=== PATIENT | male | born 1970 | race Caucasian/White ===

== ENCOUNTER 2020-10-02 08:05 | Outpatient (REF) | payer OTHER, BC, SELFPAY ==
[2020-10-02 11:32] LABS: Glucose Urine UA NEG (NEG); Leukocyte Esterase Urine 1+ (NEG); Nitrite Urine NEG (NEG); Urine Blood 2+ (NEG); Urine Ketones NEG (NEG); Urine Protein NEG (NEG-TRACE)
[2020-10-02 11:36] LABS: Appearance Urine HAZY; Color Urine STRAW
[2020-10-02 11:41] LABS: Hematocrit 41.1 % (42-52); Hemoglobin 13.3 g/dl (14.0-18.0); Mean Corpuscular HGB Conc 32.4 g/dl (31.0-36.0); Mean Corpuscular Hemoglobin 28.8 pg (27.0-33.0); Mean Platelet Volume 10.5 fL (9.4-12.4); Platelet Count 327 X10*3/uL (160-400); Red Blood Count 4.62 X10*6/uL (4.60-5.80); Red Cell Distribution Width 11.9 % (11.0-16.0); White Blood Count 4.7 X10*3/uL (4.8-10.8)
[2020-10-02 11:50] LABS: Alanine Aminotransferase 13 U/L (0-40); Albumin Level 4.2 g/dL (3.5-5.0); Alkaline Phosphatase 46 U/L (39-117); Anion Gap 10 (12-20); Aspartate Amino Transferase 20 U/L (5-37); Bilirubin Total 0.5 mg/dL (0.0-1.0); Blood Urea Nitrogen 13 mg/dL (9-16); Calcium 9.3 mg/dL (8.4-10.2); Carbon Dioxide 28 mmol/L (22-29); Chloride 105 mmol/L (96-108); Cholesterol 153 mg/dL; Estimated Glomerular Filt Rate > 60; Glucose Fasting 83 mg/dL (60-99); HDL Cholesterol 62 mg/dL; LDL Cholesterol Calculated 83 mg/dl; Potassium 4.8 mmol/L (3.3-5.1); Sodium 138 mmol/L (135-145); Total Protein 7.3 g/dL (6.5-8.0); Triglycerides 43 mg/dL
[2020-10-02 11:54] LABS: Squamous Epithelial Cell Urine TRACE /LPF
[2020-10-02 12:12] LABS: TSH reflex Free T4 3.49 uIU/mL (0.32-4.0); Vitamin D 25-OH Total 35.3 ng/mL (>30)
== END 2020-10-02 08:06 | disposition home or self-care (01) ==
LOC: HO.HMGCLDS 08:05
PROVIDERS: PCP Internal Medicine; Visit Provider Internal Medicine
DX: Z00.00 Encounter for general adult medical examination without abnormal findings (principal)
CPT/HCPCS: 36415; 80053; 80061; 81001; 82306; 84443; 85027

== ENCOUNTER 2022-08-21 12:41 | Outpatient (REF) | payer BC, SELFPAY ==
[2022-08-21 13:30] LABS: MANUAL DIFF FLAG NO
[2022-08-21 14:08] LABS: Basophils Absolute Auto 0.1 X10*3/uL (0.0-0.2); Basophils Percent Auto 0.8 % (0-2); Eosinophils Absolute Auto 0.1 X10*3/uL (0.0-0.4); Eosinophils Percent Auto 1.8 % (0-4); Hematocrit 40.3 % (42.0-52.0); Hemoglobin 13.2 g/dl (14.0-18.0); Imm Gran Abs Auto 0.03 X10*3/uL (0.00-0.03); Imm Gran Pct Auto 0.4 % (0.0-0.4); Lymphocytes Absolute Auto 1.4 X10*3/uL (1.2-4.9); Lymphocytes Percent Auto 18.9 % (20-40); Mean Corpuscular HGB Conc 32.8 g/dl (31.0-36.0); Mean Corpuscular Hemoglobin 29.9 pg (27.0-33.0); Mean Corpuscular Volume 91.4 fL (80.0-98.0); Mean Platelet Volume 9.9 fL (9.4-12.4); Monocytes Absolute Auto 0.4 X10*3/uL (0.1-1.2); Monocytes Percent Auto 5.8 % (2-11); Neutrophils Absolute Auto 5.2 x10*3/uL (2.0-8.3); Neutrophils Percent Auto 72.3 % (45-73); Platelet Count 359 X10*3/uL (160-400); Red Blood Count 4.41 X10*6/uL (4.60-5.80); Red Cell Distribution Width 11.9 % (11.0-16.0); White Blood Count 7.2 X10*3/uL (4.8-10.8)
[2022-08-21 15:39] LABS: Alanine Aminotransferase 12 U/L (0-40); Albumin Level 4.1 g/dL (3.5-5.0); Alkaline Phosphatase 45 U/L (39-117); Anion Gap 12 (12-20); Aspartate Amino Transferase 20 U/L (5-37); Bilirubin Total 0.3 mg/dL (0.0-1.0); Blood Urea Nitrogen 8 mg/dL (9-16); Calcium 9.4 mg/dL (8.4-10.2); Carbon Dioxide 27 mmol/L (22-29); Chloride 105 mmol/L (96-108); Estimated Glomerular Filt Rate > 60; Glucose Random 75 mg/dL (60-115); Potassium 4.5 mmol/L (3.3-5.1); Sodium 139 mmol/L (135-145); Total Protein 7.1 g/dL (6.5-8.0)
== END 2022-08-21 12:42 | disposition home or self-care (01) ==
LOC: HO.LAB 12:41
PROVIDERS: PCP Internal Medicine; Visit Provider Nurse Practitioner
DX: Z01.818 Encounter for other preprocedural examination (principal)
CPT/HCPCS: 36415; 80053; 85025

== ENCOUNTER 2023-03-03 11:21 | Day surgery (SDC) | payer BC, SELFPAY ==
[2023-02-27 11:57] VITALS: BMI 21.3
--- NOTE | 2023-02-28 10:17 | HO.ANESPROP2 ---
Documented by User: Dena Kate NP 02/28/23 10:18 HPI - Anesthesia Eval Consult details Narrative: 52yo M for Colonoscopy PMFSH Active Problems Active Problems: All Active Problems (Updated 08/21/22 @ 12:44 by WILLIAN Sharma) Pre-op examination (Acute) Anemia (Acute) Melasma (Acute) FHx: colonic polyps (Acute) Normal Pap smear (Acute) Annual physical exam (Acute) Past Medical History Medical History Anemia Annual physical exam FHx: colonic polyps Melasma Normal Pap smear Family History Family History Father HTN (hypertension) Intestinal polyps Paternal Grandfather Colon cancer Maternal Grandfather Prostate cancer Brother HTN (hypertension) Mother Intestinal polyps Surgical History Surgical History No pertinent past surgical history Social History Social History Alcohol intake: current Alcohol intake frequency: holidays/special occasions only Patient Tobacco Use Status: Never used Tobacco Use of substances other than those prescribed or required for medical reasons: No Are you DNR?: No Advance Directives: No Advance Directives Information Provided: Yes Meds Allergies Allergy/AdvReac Type Severity Reaction Status Date / Time No Known Allergies Allergy Verified 07/28/20 08:16 Exam Height,Weight and Vital Signs: Height 5 ft Weight 49.442 kg Pertinent Lab Results Pertinent Lab Results: Laboratory Tests 08/21/22 13:29 WBC 7.2 Hgb 13.2 L Hct 40.3 L Plt Count 359 Sodium 139 Potassium 4.5 Chloride 105 Carbon Dioxide 27 BUN 8 L Creatinine 0.77 Assessment and Plan Assessment Anesthesia Assessment: Chart Reviewed Documented by User: Sara Funk MD 03/03/23 12:18 [facility] Past Medical History Medical History Anemia Annual physical exam FHx: colonic polyps Melasma Normal Pap smear Family History Family History Father HTN (hypertension) Intestinal polyps Paternal Grandfather Colon cancer Maternal Grandfather Prostate cancer Brother HTN (hypertension) Mother Intestinal polyps Family history of problems with anesthesia: No Surgical History Surgical History No pertinent past surgical history History of Problems with Anesthesia: No Social History Social History Alcohol intake: current Alcohol intake frequency: holidays/special occasions only Patient Tobacco Use Status: Never used Tobacco Use of substances other than those prescribed or required for medical reasons: No Are you DNR?: No Advance Directives: No Advance Directives Information Provided: Yes Meds Allergies Allergy/AdvReac Type Severity Reaction Status Date / Time No Known Allergies Allergy Verified 07/28/20 08:16 Exam Airway Mallampati Class: II (caps) TM Dist: >3cm Neck ROM: Full Heart: rrr Lungs: cta Assessment and Plan Assessment Anesthesia Assessment: Anesthesia Plan Discussed Final Anesthetic Review Family History of Problems with Anesthesia: No History of Problems with Anesthesia: No NPO: Yes ASA Class: II Final Preanesthetic Review: No Changes in Pt Med Stat, Meds/Allgs Chart Reviewed and Consent Obtained/Reviewed Patient Risk: Intermediate Procedure Risk: Intermediate Anesthetic Plan Anesthetic Plan: MAC: Disposition: Standard PACU
--- NOTE | 2023-03-03 11:51 | MHC.SHP ---
Pre-Procedural Eval Section A Date of Service: 03/03/23 The patient is an INPATIENT: No The History & Physical has been completed within 30 days and I have reviewed it.: No Section B Chief Complaint: Colon cancer screening, FH of polyps and cancer Relevant Family History (Specify if Yes): Yes Relevant Social History: None Present Medications: see Short Stay Collaborative assessment Medical History: Significant History (Anemia Annual physical exam FHx: colonic polyps Melasma) History of Previous Operations: No relevant previous surgery Allergies: Allergies Allergy/AdvReac Type Severity Reaction Status Date / Time No Known Allergies Allergy Verified 07/28/20 08:16 Review of Systems Sugical H&P ROS: Negative: Constitution, Cardiovascular, Respiratory and Gastrointestinal Exam Surgical H&P Exam: Normal: Heart, Normal: Lungs, Normal: Extremities and Normal: Abdomen Plan Diagnosis/Plan: Unchanged I have reviewed the history and physical and performed a pertinent physical examination on my patient. No changes have occurred unless specified. Time Spent With Patient Time: Total time managing care of this patient today ____ minutes.
[2023-03-03 11:53] VITALS: BMI 21.1
[2023-03-03 12:00] VITALS: BP 112/73; PULSE 77; RESP 16; TEMP 36.3; O2SAT 100
[2023-03-03] MEDS: Lactated Ringers 1,000 ML 100 ML IVCONT (12:01)
--- NOTE | 2023-03-03 12:57 | W.PM.OPN ---
Operative Note Operative Note Date of Service: 03/03/23 Narrative: COLONOSCOPY TILL CECUM WITH SNARE POLYPECTOMY, SUBMUCOSAL INJECTION AND HEMOCLIP PLACEMENT Pre-op diagnosis: Colon cancer screen, family history of colon cancer and polyps Post-op diagnosis:? Colon polyps, diverticulosis, hemorrhoids Endoscopist:? Bud Cotter MD Anesthesia:?MAC Consent: Indications for the procedure and potential complications of bleeding, perforation, reaction to medications and missed diagnosis were discussed with the patient and informed consent was obtained. Instrument: Olympus PCF H 190 L variable stiffness pediatric colonoscope Monitoring: Vital signs and clinical assessment, intermittent blood pressure monitoring, continuous EKG monitoring, Pulse oximetry and Carbon Dioxide monitoring were done throughout the procedure. Please see anesthesia flowsheet. Colon withdrawl time was 30 minutes. Procedure: The patient was placed in the left lateral decubitis position and pre-procedure medications were administered. After a digital rectal examination of the ano-rectum, the video colonoscope was inserted into the rectum and advanced through the colon to the cecum. The colonoscope was slowly withdrawn in a retrograde panoramic fashion and the colon mucosa was carefully examined including a retroflexed view of the rectum. Findings and interventions are described below. Procedure Difficulty: Colon was long and tortuous and there was recurrent loop formation Findings: Terminal Ileum: Not evaluated Cecum: Normal Ascending Colon: A 3 x 2 cms elongated polyp in the mid AC at 55 to 60 cms. Polyp was raised with 5 cc of Eleview and removed with a hot stiff snare. Polypectomy site was closed with 2 hemoclips and marked with Dee ink. Polyp was retrieved with a Foley Net. Transverse Colon: 10 mm sessile polyp removed with hot snare Descending Colon: Moderate diverticulosis Sigmoid Colon: Severe diverticulosis Rectum: Normal Ano-rectum: Small internal hemorrhoids and hypertrophied anal papillae Colon preparation: Good in the right colon after copious irrigation and fair in the left colon due to undigested vegetable matter which could not be suctioned Impression and Post Procedure Diagnosis: Colonoscopy Findings: One large and one medium sized polyps removed Moderate to severe diverticulosis seen in the left colon Small hemorrhoids on retroflexed exam. Plan: Await pathology results Patient has an appointment on 03/20/23 in the GI Clinic with Monique Morales NP. Repeat Colonoscopy interval based on path results - in 6 months to check polypectomy site in the AC (needs to take Dulcolax 2 tablets daily x 3 days prior to her next colonoscopy appt due to fair prep) and 5 years if polyps are hyperplastic (due to positive family hx). Above findings were reviewed with the patient and colon polyps and diverticulosis handouts were given in the discharge area BIOPSIES SHOWED: A. Colon, ascending 60 cm, polypectomy: Fragments of tubular adenoma; negative for high-grade dysplasia or carcinoma. B. Colon, transverse, polypectomy: Hyperplastic mucosal polyp Letter sent to the patient advising repeat colonoscopy in 6 months
[2023-03-03 13:53] VITALS: BP 106/67; PULSE 66; RESP 16; TEMP 36.6; O2SAT 100
[2023-03-03 14:10] VITALS: BP 120/72; PULSE 65; RESP 16; TEMP 36.8; O2SAT 10
== END 2023-03-03 14:15 | disposition home or self-care (01) ==
PROVIDERS: PCP Internal Medicine; Visit Provider Internal Medicine Gastroenterology
PROC: 0DJD8ZZ Inspection of Lower Intestinal Tract, Via Natural or Artificial Opening Endoscopic (ICD-10-PCS; CPT 45378; principal; 2023-03-03 12:00)
DX: Z12.11 Encounter for screening for malignant neoplasm of colon (principal); D12.2 Benign neoplasm of ascending colon; K62.89 Other specified diseases of anus and rectum; K56.2 Volvulus; K57.30 Diverticulosis of large intestine without perforation or abscess without bleeding; K64.8 Other hemorrhoids; Z83.719 Family history of colon polyps, unspecified; D64.9 Anemia, unspecified
CPT/HCPCS: 45385; 45381; 88305; J2704

== ENCOUNTER → 2023-03-03 11:21 | Outpatient (BNV) | payer BC, SELFPAY | PROVIDERS: PCP Internal Medicine; Visit Provider Internal Medicine Gastroenterology | DX: Z12.11 Encounter for screening for malignant neoplasm of colon (principal); Z80.0 Family history of malignant neoplasm of digestive organs; K63.5 Polyp of colon; K57.90 Diverticulosis of intestine, part unspecified, without perforation or abscess without bleeding; K64.8 Other hemorrhoids | CPT/HCPCS: 45381; 45385 ==

== ENCOUNTER 2023-03-20 11:10 | Outpatient (AMB) | payer BC, SELFPAY ==
[2023-03-20 11:13] VITALS: BP 111/66; PULSE 69; BMI 21.0
--- NOTE | 2023-03-20 11:13 | MHC.OFFVIS ---
Intake Vital Signs 03/20/23 11:13 Height 5 ft Weight 107 lb 9.369 oz BMI 21.0 BP 111/66 Blood Pressure Location Lt brachial Position Sitting Pulse 69 Intake Visit Reasons: S/P [place]; Dr. Cotter Intake Note: Patient presents to in office visit today in follow up of colonoscopy. CC: Patient underwent colonoscopy with Dr. Cotter on 03/05/23. Patient reports doing well and denies having any GI symptoms or concerns.? Allergies No Known Allergies Allergy (Verified 03/20/23 11:19) HPI S/P [place]; Dr. Cotter HPI Details Assessment & Plan (1) Pre-op examination: Code(s): Z01.818 - Encounter for other preprocedural examination Plan: This is her first colonoscopy. She denies any bowel or upper GI problems. She has technology advisor with anesthesia or sedation. She denies cardiac or respiratory problems. No ID problems Her paternal grandfather of CRC in his 70's, his father and mother had polyps. (2) FHx: colonic polyps: Comment: father, aunt, grandfather Code(s): Z83.71 - Family history of colonic polyps Orders: Orders Comprehensive Met. Panel Today Z01.818 - Encounte r for other prepro cedural examinatio n Complete Blood Cou nt Auto Diff Today Z01.818 - Encounte r for other prepro cedural examinatio n Medications: New peg 3350-electroly boone 236-22.74-6.74 -5.86 gram (Golyt seth) until feca l effluent is merirck r; do not exceed a total volume of 2 ,000 mL 240 mL PO Q10M 1 day 4,000 mL 0RF Z12.11 - Encounter for screening for malignant neoplas m of co LABS: Laboratory Tests 08/21/22 13:29 WBC 7.2 Hgb 13.2 L Hct 40.3 L MCV 91.4 MCH 29.9 Plt Count 359 Estimated GFR > 60 Total Bilirubin 0.3 AST 20 ALT 12 Alkaline Phosphata se 45 COLONOSCOPY 03/03/23 Findings: Terminal Ileum: Not evaluated Cecum: Normal Ascending Colon: A 3 x 2 cms elongated polyp in the mid AC at 55 to 60 cms. Polyp was raised with 5 cc of Eleview and removed with a hot stiff snare. Polypectomy site was closed with 2 hemoclips and marked with Dee ink. Polyp was retrieved with a Foley Net. Transverse Colon: 10 mm sessile polyp removed with hot snare Descending Colon: Moderate diverticulosis Sigmoid Colon: Severe diverticulosis Rectum: Normal Ano-rectum: Small internal hemorrhoids and hypertrophied anal papillae Colon preparation: Good in the right colon after copious irrigation and fair in the left colon due to undigested vegetable matter which could not be suctioned Impression and Post Procedure Diagnosis: Colonoscopy Findings: One large and one medium sized polyps removed Moderate to severe diverticulosis seen in the left colon Small hemorrhoids on retroflexed exam. Plan: Await pathology results Patient has an appointment on 03/20/23 in the GI Clinic with Monique Morales NP. Repeat Colonoscopy interval based on path results - in 6 months to check polypectomy site in the AC (needs to take Dulcolax 2 tablets daily x 3 days prior to her next colonoscopy appt due to fair prep) and 5 years if polyps are hyperplastic (due to positive family hx). Above findings were reviewed with the patient and colon polyps and diverticulosis handouts were given in the discharge area BIOPSIES SHOWED: A. Colon, ascending 60 cm, polypectomy: Fragments of tubular adenoma; negative for high-grade dysplasia or carcinoma. B. Colon, transverse, polypectomy: Hyperplastic mucosal polyp Letter sent to the patient advising repeat colonoscopy in 6 months TODAY'S VISIT The procedure needs to be repeated in 6 months due to the size of the tubular adenomas, her failure to completely clear, and to check prior polypectomy site. She is quite agreeable to this. She did not have any trouble with the prep except after drinking at all it took her about 4 hours before she started moving her bowels. We discuss taking some Dulcolax tablets a few days before and starting the prep a bit earlier to make sure it has a chance to work through. The procedure was well tolerated. The results were explained and the patient is agreeable to the follow-up interval as stated. The bowel pattern has returned to normal. Education was provided to tell any 1st degree relatives about their findings to be sure that they are screened by age 45. Educated that they will be put on a recall list when it is time for their repeat scope but should they move out of state or away from the hospital they will need to remember along with their primary to repeat the procedure in a timely fashion to avoid any adverse complications. [facility] Medical History Anemia Melasma FHx: colonic polyps Normal Pap smear Annual physical exam Surgical History H/O colonoscopy Family History Father HTN (hypertension) Intestinal polyps Paternal Grandfather Colon cancer Maternal Grandfather Prostate cancer Brother HTN (hypertension) Mother Intestinal polyps Social History Alcohol intake: current Alcohol intake frequency: holidays/special occasions only Patient Tobacco Use Status: Never used Tobacco Review of Systems Const Denies fatigue, Denies fever(s), Denies night sweats, Denies poor appetite and Denies weight loss ENT Reports Normal hearing present, Denies dental pain, Denies dysphagia, Denies hearing loss, Denies mouth pain, Denies odynophagia, Denies throat swelling, Denies tongue swelling and Reports other (Dentition adequate) Card Reports no additional complaints Resp Reports no additional complaints GI Denies abdominal pain, Denies melena, Denies bloating, Denies hematochezia, Denies constipation, Denies GI cramping, Denies dysphagia, Denies excessive flatus, Denies early satiety, Denies heartburn, Denies diarrhea, Denies nausea, Denies odynophagia, Denies vomiting and Denies hematemesis Skin/Breast Denies pruritus, Denies lesions, Denies rash and Denies jaundice Neuro Reports Normal hearing present and Denies Abnormal speech present Endo Denies fatigue Aller/Immun Denies throat swelling and Denies tongue swelling Physical Exam Vital Signs: Last Vital Signs Pulse 69 03/20/23 11:13 BP 111/66 01/04/24 11:13 BMI result Body Mass Index 21.0 Const General: cooperative, no acute distress, well developed and well groomed Nutritional Appearance: average body habitus and well nourished Orientation/consciousness: oriented to person, oriented to place and oriented to time Limitations: No language barrier HEENT Head: Yes normocephalic and Yes atraumatic Eyes General: appearance normal, both eyes and all related structures Pupils: Equal, round and reactive pupils present Neck Neck: Yes normal visual inspection and Yes no lymphadenopathy Thyroid: Thyroid normal Resp Effort & Inspection: normal respiratory effort and able to speak in complete sentences Auscultation: clear to auscultation bilaterally Cardio Rate: regular rate Rhythm: regular rhythm Heart sounds: Normal, physiologic split S2 sound present Peripheral pulses: radial pulses present and posterior tibial pulses present GI Inspection: No distended and No Abdominal panniculus present Palpation (GI): Soft to palpation, nontender, no guarding, not rigid and No hepatosplenomegaly present Percussion: Yes normal to percussion Auscultation: normal bowel sounds Rectal Exam - Female: deferred Skin General skin exam: no rashes or lesions noted, turgor normal, skin not dry, no jaundice, No spider nevi and no striae Rashes: no rashes Nails: normal Neuro General: oriented to person, oriented to place and oriented to time Cranial nerves: Yes Equal, round and reactive pupils present and Yes Normal hearing present Speech: No Abnormal speech present Extrem General: Yes normal to inspection, No clubbing, No cyanosis and No edema Psych Appearance: grossly normal and well kempt Mental Status: mental status grossly normal Speech and movement: Normal speech and movement present Affect: normal affect Attitude: cooperative Thought process: Normal thought process present and not confabulating Thought content: Normal thought content present Insight: Good insight present (Psych) Judgement: Good judgement present (Psych) Results Reviewed Results Reviewed: Laboratory Tests 08/21/22 13:29 WBC 7.2 Hgb 13.2 L Hct 40.3 L MCV 91.4 MCH 29.9 Plt Count 359 Estimated GFR > 60 Total Bilirubin 0.3 AST 20 ALT 12 Alkaline Phosphatase 45 COLONOSCOPY 03/03/23 Findings: Terminal Ileum: Not evaluated Cecum: Normal Ascending Colon: A 3 x 2 cms elongated polyp in the mid AC at 55 to 60 cms. Polyp was raised with 5 cc of Eleview and removed with a hot stiff snare. Polypectomy site was closed with 2 hemoclips and marked with Dee ink. Polyp was retrieved with a Foley Net. Transverse Colon: 10 mm sessile polyp removed with hot snare Descending Colon: Moderate diverticulosis Sigmoid Colon: Severe diverticulosis Rectum: Normal Ano-rectum: Small internal hemorrhoids and hypertrophied anal papillae Colon preparation: Good in the right colon after copious irrigation and fair in the left colon due to undigested vegetable matter which could not be suctioned Impression and Post Procedure Diagnosis: Colonoscopy Findings: One large and one medium sized polyps removed Moderate to severe diverticulosis seen in the left colon Small hemorrhoids on retroflexed exam. Plan: Await pathology results Patient has an appointment on 03/20/23 in the GI Clinic with Monique Morales NP. Repeat Colonoscopy interval based on path results - in 6 months to check polypectomy site in the AC (needs to take Dulcolax 2 tablets daily x 3 days prior to her next colonoscopy appt due to fair prep) and 5 years if polyps are hyperplastic (due to positive family hx). Above findings were reviewed with the patient and colon polyps and diverticulosis handouts were given in the discharge area BIOPSIES SHOWED: A. Colon, ascending 60 cm, polypectomy: Fragments of tubular adenoma; negative for high-grade dysplasia or carcinoma. B. Colon, transverse, polypectomy: Hyperplastic mucosal polyp Letter sent to the patient advising repeat colonoscopy in 6 months Assessment & Plan Assessment & Plan (1) Tubular adenoma of colon: Comment: 02/2023 =2 large TA repeat 6 months Code(s): D12.6 - Benign neoplasm of colon, unspecified Plan She is here today with her who also had a colonoscopy and is here for his review as well. The procedure needs to be repeated in 6 months due to the size of the tubular adenomas, her failure to completely clear, and to check prior polypectomy site. She is quite agreeable to this. She did not have any trouble with the prep except after drinking at all it took her about 4 hours before she started moving her bowels. We discuss taking some Dulcolax tablets a few days before and starting the prep a bit earlier to make sure it has a chance to work through. The procedure was well tolerated. The results were explained and the patient is agreeable to the follow-up interval as stated. The bowel pattern has returned to normal. Education was provided to tell any 1st degree relatives about their findings to be sure that they are screened by age 45. Educated that they will be put on a recall list when it is time for their repeat scope but should they move out of state or away from the hospital they will need to remember along with their primary to repeat the procedure in a timely fashion to avoid any adverse complications. Orders: Orders Colonoscopy - GI Use Only Today D12.6 - Benign neoplasm of colon, unspecified Medications: New bisacodyl (Dulcolax (bisacodyl)) 10 mg (2 x 5 mg) PO BEDTIME 2 days 4 tabs 0RF D12.6 - Benign neoplasm of colon, unspecified peg 3350-electrolytes 236-22.74-6.74 -5.86 gram (Golytely) until fecal effluent is clear; do not exceed a total volume of 2,000 mL 240 mL PO Q10M 1 day 4,000 mL 0RF Z12.11 - Encounter for screening for malignant neoplasm of colon Coding Level of Care Code Est Pt Level 4 (78283) Diagnoses Tubular adenoma of colon D12.6
== END 2023-03-20 11:45 | disposition home or self-care (01) ==
PROVIDERS: PCP Internal Medicine; Visit Provider Nurse Practitioner
DX: D12.6 Benign neoplasm of colon, unspecified (principal)
CPT/HCPCS: 99214

== ENCOUNTER → 2023-03-20 11:10 | Outpatient (BNVA) | payer BC, SELFPAY | PROVIDERS: PCP Internal Medicine; Visit Provider Nurse Practitioner ==

== ENCOUNTER 2024-02-02 12:44 | Day surgery (SDC) | payer BC, SELFPAY ==
[2024-01-29 12:29] VITALS: BMI 20.9
--- NOTE | 2024-02-02 13:01 | HO.ANESPROP2 ---
PMF Active Problems Active Problems: All Active Problems Tubular adenoma of colon (Acute) Pre-op examination (Acute) Anemia (Acute) Melasma (Acute) FHx: colonic polyps (Acute) Normal Pap smear (Acute) Annual physical exam (Acute) Past Medical History Medical History Anemia Melasma FHx: colonic polyps Normal Pap smear Annual physical exam Family History Family History Father HTN (hypertension) Intestinal polyps Paternal Grandfather Colon cancer Maternal Grandfather Prostate cancer Brother HTN (hypertension) Mother Intestinal polyps Family history of problems with anesthesia: No Surgical History Surgical History H/O colonoscopy History of Problems with Anesthesia: No Social History Social History Alcohol intake: current Alcohol intake frequency: holidays/special occasions only Patient Tobacco Use Status: Never used Tobacco Advance Directives: No Advance Directives Information Provided: Yes Meds Allergies Allergy/AdvReac Type Severity Reaction Status Date / Time No Known Allergies Allergy Verified 03/20/23 11:19 Exam Height,Weight and Vital Signs: Height 5 ft Weight 48.534 kg Airway Mallampati Class: II TM Dist: >3cm Neck ROM: Full Assessment and Plan Assessment Anesthesia Assessment: Anesthesia Plan Discussed and Chart Reviewed Final Anesthetic Review Family History of Problems with Anesthesia: No History of Problems with Anesthesia: No NPO: Yes ASA Class: II Final Preanesthetic Review: No Changes in Pt Med Stat, Meds/Allgs Chart Reviewed, Consent Obtained/Reviewed and Anes Risks/Benef Reviewed Patient Risk: Low Procedure Risk: Low Anesthetic Plan Anesthetic Plan: TIVA Disposition: Standard PACU
[2024-02-02 13:26] VITALS: BP 124/70; PULSE 85; RESP 18; TEMP 36.4; O2SAT 98
--- NOTE | 2024-02-02 13:37 | MHC.SHP ---
Pre-Procedural Eval Section A - 24 Hr Update-Section A only Date of Service: 02/02/24 The patient is an INPATIENT: No The patient has been examined within 24 hours of the surgical procedure. The History & Physical has been completed within 30 days and I have reviewed it.: No Section B - Complete if H&P > 30 days Chief Complaint: Surveillance of colon polyps Relevant Family History (Specify if Yes): Yes Relevant Social History: None Present Medications: see Short Stay Collaborative assessment Medical History: Significant History (Anemia Melasma FHx: colonic polyps) History of Previous Operations: Relevant previous surgery/procedure and date(s) (History of colonoscopy) Allergies: Allergies Allergy/AdvReac Type Severity Reaction Status Date / Time No Known Allergies Allergy Verified 03/20/23 11:19 Review of Systems Sugical H&P ROS: Negative: Constitution, Cardiovascular, Respiratory and Gastrointestinal Exam Surgical H&P Exam: Normal: Heart, Normal: Lungs, Normal: Extremities and Normal: Abdomen Plan Diagnosis/Plan: Unchanged I have reviewed the history and physical and performed a pertinent physical examination on my patient. No changes have occurred unless specified. Time Spent With Patient Time: Total time managing care of this patient today ____ minutes.
--- NOTE | 2024-02-02 14:32 | HO.OPN-COLON ---
Colonoscopy Operative Note Operative Note Date of Service: 02/02/24 Narrative: COLONOSCOPY TILL CECUM WITH SNARE POLYPECTOMY, SUBMUCOSAL INJECTION AND HEMOCLIP PLACEMENT Pre-op diagnosis: Surveillance for colon polyps. Post-op diagnosis:? Colon polyp, Diverticulosis, hemorrhoids Endoscopist:? Bud Cotter MD Anesthesia:?MAC Consent: Indications for the procedure and potential complications of bleeding, perforation, reaction to medications and missed diagnosis were discussed with the patient and informed consent was obtained. Instrument: Olympus PCF H 190 L variable stiffness pediatric colonoscope Monitoring: Vital signs and clinical assessment, intermittent blood pressure monitoring, continuous EKG monitoring, Pulse oximetry and Carbon Dioxide monitoring were done throughout the procedure. Please see anesthesia flowsheet. Colon withdrawl time was 25 minutes. Procedure: The patient was placed in the left lateral decubitis position and pre-procedure medications were administered. After a digital rectal examination of the ano-rectum, the video colonoscope was inserted into the rectum and advanced through the colon to the cecum. The colonoscope was slowly withdrawn in a retrograde panoramic fashion and the colon mucosa was carefully examined including a retroflexed view of the rectum. Findings and interventions are described below. Procedure Difficulty: Colon was long and tortuous and there was some loop formation Findings: Terminal Ileum: Not evaluated Cecum: Normal Ascending Colon: Normal Transverse Colon: A 1.8 to 2 cms flat polyp at 35 cms. Polyp was raised with 3 cc of Eleview and removed with a stiff hot snare. Polypectomy site was closed with 1 hemoclip and marked by Dee ink. Descending Colon: Moderate diverticulosis Sigmoid Colon: Severe diverticulosis Rectum: Normal Ano-rectum: Small internal hemorrhoids Colon preparation: Good after copious irrigation. [place] Bowel Preparation Scale Right colon; 2 Transverse colon: 2 Left colon; 2 (0 = Unprepared colon segment with mucosa not seen due to solid stool that cannot be cleared. 1 = Portion of mucosa of the colon segment seen, but other areas of the colon segment not well seen due to staining, residual stool and/or opaque liquid. 2 = Minor amount of residual staining, small fragments of stool and/or opaque liquid, but mucosa of colon segment seen well. 3 = Entire mucosa of colon segment seen well with no residual staining, small fragments of stool or opaque liquid) Impression and Post Procedure Diagnosis: Colonoscopy Findings: One medium sized polyp was removed Moderate diverticulosis seen in the left colon Small hemorrhoids on retroflexed exam. Plan: I will send a letter with biopsy results. Repeat Colonoscopy in 3-5 years if polyps are adenomatous and due to a hx of adenomatous colon polyps Above findings were reviewed with the patient and relevant handouts were given and the discharge area. BIOPSIES SHOWED: Colon, transverse, polypectomy: Fragments of sessile serrated lesion/polyp; negative for cytologic dysplasia. Letter sent with biopsy results. Patient was placed on colonoscopy recall list for repeat colon in 3 years.
[2024-02-02 14:35] VITALS: BP 96/54; PULSE 76; RESP 16; TEMP 36.7; O2SAT 98
[2024-02-02 14:50] VITALS: BP 96/54; PULSE 84; RESP 20; TEMP 36.7; O2SAT 100
== END 2024-02-02 15:18 | disposition home or self-care (01) ==
PROVIDERS: PCP Internal Medicine; Visit Provider Internal Medicine Gastroenterology
PROC: 0DJD8ZZ Inspection of Lower Intestinal Tract, Via Natural or Artificial Opening Endoscopic (ICD-10-PCS; CPT 45378; principal; 2024-02-02 14:10)
DX: Z12.11 Encounter for screening for malignant neoplasm of colon (principal); Z86.0101 Personal history of adenomatous and serrated colon polyps; Z83.719 Family history of colon polyps, unspecified; D12.3 Benign neoplasm of transverse colon; K57.30 Diverticulosis of large intestine without perforation or abscess without bleeding; K64.8 Other hemorrhoids; D64.9 Anemia, unspecified; L81.1 Chloasma
CPT/HCPCS: 45385; 45381; 88305; J2003; J2704

== ENCOUNTER → 2024-02-02 12:44 | Outpatient (BNV) | payer BC, SELFPAY | PROVIDERS: PCP Internal Medicine; Visit Provider Internal Medicine Gastroenterology | DX: Z12.11 Encounter for screening for malignant neoplasm of colon (principal); Z86.0100 Personal history of colon polyps, unspecified; K63.5 Polyp of colon; K57.30 Diverticulosis of large intestine without perforation or abscess without bleeding | CPT/HCPCS: 45381; 45385 ==